=== PATIENT | female | born 1965 | race Caucasian/White ===

== ENCOUNTER 2019-07-01 10:08 | Outpatient (CLI) | payer OTHER, SELFPAY ==
--- NOTE | ~2019-07-01 | MMUS_ITS ---
EXAMINATION: MM diagnostic mammo BI, US breast BI limited HISTORY: Bilateral breast asymmetries on screening mammogram TECHNIQUE: Additional 3-D tomosynthesis images of the breasts were performed and synthetic 2-D images were generated. CAD analysis was submitted and interpreted. High resolution limited bilateral breast ultrasound was performed. COMPARISON: 06/18/2019 FINDINGS: MAMMOGRAPHIC FINDINGS: Right breast: There is subtle persistent asymmetry of the subareolar aspect of the slightly inner nagi ast with spot compression. No definite mass, calcification, or architectural distortion are seen. Left breast: There are equal density, obscured masses in the middle third of the upper outer quadrant of the breast which measure up to 4 mm. ULTRASOUND: Right breast: There is a questionable 8 mm x 4 mm hyperechoic, oval, parallel mass at the 1:00 locati on near the nipple with no posterior features or internal vascularity. Left breast: There is a 3 mm x 3 mm oval, circumscribed, parallel, hypoechoic mass with an appearance hyperechoic center at the 3:00 location 6 cm from the nipple. A 3 mm round, hypoechoic, circumscribe d mass with no definite posterior features or internal vascularity is present at the 12:00 location 6 cm from the nipple. IMPRESSION: 1. Probably benign bilateral breast masses. 2. Recommend 6 month follow-up bilateral diagnostic mammogram and targeted ultrasound. BI-RADS category 3, probably benign findings. Reviewed, dictated and finalized at location A. E COVERER IMPRESSION: 1. Probably benign bilateral breast masses. 2. Recommend 6 month follow-up bilateral diagnostic mammogram and targeted ultr asound. BI-RADS category 3, probably benign findings.
== END 2019-07-01 10:09 | disposition home or self-care (01) ==
LOC: CHSIMG 10:10
PROVIDERS: PCP Nurse Practitioner Family; Visit Provider Nurse Practitioner Family
DX: R92.8 Other abnormal and inconclusive findings on diagnostic imaging of breast (principal)
CPT/HCPCS: 76642; 77066

== ENCOUNTER 2019-07-17 15:08 | Outpatient (CLI) | payer OTHER, SELFPAY ==
--- NOTE | ~2019-07-17 | MR_ITS ---
EXAMINATION: MR knee RT wo con DATE: 07/17/2019 16:16 INDICATION: Right knee pain TECHNIQUE: Magnetic resonance imaging (MRI) of the right knee was performed without intravenous contr ast. Sequences included coronal PD-weighted FSE, coronal PD-weighted FS FSE, sagittal T2-weighted FS E, sagittal PD-weighted FS FSE and axial PD weighted fat saturated FSE. COMPARISON: None. FINDINGS: Medial compartment: Medial meniscus is normal. There is deep chondral ulceration and fissuring along the anterior weightb earing medial femoral condyle with tiny focus of underlying subarticular edema. Additional small mandy on of deep chondral ulceration with small central subarticular osteophyte along the medial side of th e central weightbearing medial femoral condyle. Partial thickness cartilage loss with smooth chondral surface along the anterior aspect of the medial tibial plateau. Small marginal osteophytes are prese nt. Lateral compartment: There is an abnormal contour to the free edge of the lateral meniscus on the axial images series 3, i mage 23. There appears to be a small defect at the junction of the posterior horn and body. There is additional meniscal tissue beyond the margin of what appears to be the free edge at the junction of t he anterior horn and body which could represent either a partial discoid meniscus or displaced menisc al tissue from the parent defect at the junction of the posterior horn and body. There is somewhat am orphous increased signal in the region of the posterior root of the lateral meniscus suspicious for r adial tear located inferior to the intact portion of the posterior horn contiguous with the meniscal femoral ligament of Rubi. Partial-thickness cartilage loss with minimal chondral surface regulari ty at the central aspect of the lateral tibial plateau. Patellofemoral compartment: Deep chondral ulceration at the patellar apical ridge and immediately adjacent portions of the latera l and medial facets. There is underlying subarticular cystic change most prominent at the cephalad as pect of the apical ridge. Small central subarticular osteophyte extending across the midportion of th e lateral patellar facet. Partial-thickness cartilage loss with mild chondral surface irregularity al papi the inferior aspect of the medial trochlea with minimal underlying irregularity at the articular cortex. Ligaments and tendons: The anterior cruciate ligament appears thickened with increased intrasubstance signal surrounding int act signal intensity linear fibers with a celery stalk appearance which can be seen with mucoid deg eneration. The ligament however appears to follow a shallower course Mucoid degeneratio line which ra ises concern for tear although no discrete tear defect or discontinuous ligament fibers are appreciat ed. The bone at the anterior roof of the intercondylar notch exerts mass effect upon the anterior mar gin of the anterior cruciate ligament which is bowed posteriorly at this location. Posterior cruciate ligament is normal.. Is mild thickening of the proximal medial collateral ligament without significa nt increased signal or surrounding edema consistent with likely mild scarring related to chronic spra in. The fibular collateral ligament is normal. There is mild tendinopathy. Discrete tear at the proxi mal insertion of the popliteus tendon. The extensor mechanism is normal. The visualized medial and la teral hamstring tendons as well as the iliotibial band are normal. Fluid: Moderate knee joint effusion with mild synovitis within the suprapatellar recess. No loose osteochond ral bodies identified. Osseous/other: There is geographic red marrow reexpansion in the metadiaphyseal region of the distal femur and to a lesser degree the proximal tibia. No fracture or pathologic marrow replacing process. IMPRESSION: 1. Complex lateral meniscal tear with defect along
== END 2019-07-17 15:09 | disposition home or self-care (01) ==
LOC: CHSIMG 15:11
PROVIDERS: PCP Nurse Practitioner Family; Visit Provider Nurse Practitioner Family
DX: M25.561 Pain in right knee (principal)
CPT/HCPCS: 73721

== ENCOUNTER 2019-10-07 05:47 | Outpatient (CLI) | payer OTHER, SELFPAY ==
[2019-10-07 15:31] LABS: SARS-CoV-2 RNA PCR Negative
--- NOTE | 2019-10-09 16:01 | OP_ITS ---
DATE OF PROCEDURE: 10/09/2019 PREOPERATIVE DIAGNOSES: Right knee medial meniscus tear and lateral meniscus tear. POSTOPERATIVE DIAGNOSES: Right knee medial meniscus tear and lateral meniscus tear plus patellar chondromalacia and synovitis. PROCEDURES PERFORMED: Right knee arthroscopy with partial medial meniscectomy, partial lateral meniscectomy and synovectomy and chondroplasty. SURGEON: Srinivas Feliciano M.D. ANESTHESIA: General. COMPLICATIONS: None. INDICATIONS: This is a 54-year-old female who has ongoing knee pain. Knee pain is severe at times. She was diagnosed with a medial meniscus tear and lateral meniscus tear and also chondromalacia of the patella. She was indicated for right knee arthroscopy. DESCRIPTION OF PROCEDURE: The patient was taken to the operating room in stable condition and placed in supine position. General anesthesia was induced and the right lower extremity was prepped and draped sterilely from the toes to the thigh. Superomedial portal was used for the outflow cannula. Inferior lateral portal was used for the camera. The camera was introduced. There was grade 3 chondromalacia of the patella and minimal chondromalacia to the femoral groove. There was significant amount of synovitis with a large plica in the medial compartment and that was rubbing up against the cartilage with flexion. The medial compartment was entered. There was the chondral defect in the main weightbearing surface of the medial femoral condyle. There was a small tear of the medial meniscus. A medial portal was established. The meniscus underwent partial medial meniscectomy and then the chondral defect was debrided with a shaver down to good smooth cartilage. Next, the ACL was identified and was intact. The lateral compartment was entered. There was a large complex tear to the lateral meniscus involving mainly the posterior horn. The lateral meniscus tear then was debrided down to a smooth base. There was also significant amount of synovitis in the region, which was debrided. Then, limited chondroplasty was performed on the lateral femoral condyle. Next, the patellofemoral joint was identified again. Chondroplasty was performed. Synovectomy was performed in the superior medial compartment and the plica was removed and also in Hoffa synovium. The patella tracked well within the femoral groove. The instruments were removed after thorough irrigation of the knee joint. The wounds were approximated with 4-0 nylon suture. Sterile dressing was applied. The patient was extubated. D I MT: [place]
== END 2019-10-07 05:48 | disposition home or self-care (01) ==
LOC: ANHCOVIDDT 05:50
PROVIDERS: PCP Nurse Practitioner Family; Visit Provider Orthopaedic Surgery
DX: Z01.818 Encounter for other preprocedural examination (principal); Z11.59 Encounter for screening for other viral diseases
CPT/HCPCS: 87635; U0003

== ENCOUNTER 2019-10-09 01:26 | Day surgery (SDC) | payer OTHER, SELFPAY ==
[2019-10-07 10:45] VITALS: BMI 27.9
[2019-10-09] VITALS (10 sets, daily range): BP systolic 101–174; BP diastolic 50–97; PULSE 57–85; RESP 10–20; TEMP 36.4–36.9; O2SAT 96–98
--- NOTE | 2019-10-09 11:24 | ECG_ITS ---
Measurements Intervals [place] Rate: 72 P: 16 GA: 195 QRS: 30 QRSD: 81 T: 56 QT: 419 QTc: 459 Interpretive Statements SINUS RHYTHM NORMAL ECG Electronically Signed On 10-09-2019 11:55:13 CDT by Jarek Gusman D.O.
[2019-10-09] MEDS: CELECOXIB 200 MG CAPSULE PO (11:25)
--- NOTE | 2019-10-09 11:38 | WPDANESEPPF ---
Anes - Initial Pre Proc Eval Procedure: Operation Date: 10/09/19 13:00 Proposed Procedures p Right Knee Arthroscopy - Srinivas Feliciano MD Date/Time: 10/09/19 11:38 Surgeon: Srinivas Feliciano MD Pre Op Diagnosis: Right Medial Meniscus Tear Patient Data Age: 54 Gender: F Height: 5 ft 2.5 in Weight: 70.45 kg Allergies Allergy/AdvReac Type Severity Reaction Status Date / Time No Known Allergies Allergy Verified 10/09/19 11:36 Home Medications Medication Instructions Recorded Confirmed Type cyclobenzaprine 10 mg tablet 10 mg PO TID PRN #90 tablet 06/10/19 10/07/19 Rx citalopram 40 mg tablet 40 mg PO DAILY #30 tablet 07/22/19 10/07/19 Rx nicotine 14 mg/24 hr daily 1 patch TRANSDERM DAILY #28 each 09/16/19 10/07/19 Rx transdermal patch diclofenac sodium 50 mg 50 mg PO TID PRN #60 tablet 09/19/19 10/07/19 Rx tablet,delayed release chlorhexidine gluconate 4 % 1 applic TOPICAL ONCE #237 ml 10/03/19 10/07/19 Rx topical liquid aspirin 325 mg tablet 325 mg PO BID 14 Days #28 tablet 10/07/19 10/07/19 Rx atorvastatin 10 mg DAILY 10/07/19 10/07/19 History gabapentin 300 mg BID 10/07/19 10/07/19 History hydrocodone 5 mg-acetaminophen 325 1 tablet PO Q8H PRN #20 tablet 10/07/19 Rx mg tablet hydroxyzine HCl 50 mg PO TID PRN 10/07/19 10/07/19 History lisinopril 40 mg DAILY 10/07/19 10/07/19 History omeprazole 20 mg DAILY 10/07/19 10/07/19 History Patient hx anesthesia problems: none Family hx anesthesia problems: none PMFSH Past Medical History Medical History 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 Chronic knee pain Depression GERD (gastroesophageal reflux disease) HTN (hypertension) Hyperlipidemia Medial meniscus tear Tobacco dependence syndrome Surgical History Surgical History Hx of tonsillectomy 1984 Family History Family History Father Heart disease Unknown Hypertension Social History Social History Smoking packs per day: 0.5 Smoking cigarettes per day: 10.0 Smoking status: Current every day smoker Substance use type: marijuana Anes - Eval Final PreProcedure Day of Procedure 10/09/19 11:38 Patient weight: overweight Heart: regular rate and rhythm Lungs: decreased breath sounds Airway: Mallampati scale class II Neurological: alert and oriented Last oral intake: >/= 8 hours ASA classification: III Emergent: no Anesthetic plan: proceed Anesthesia type and monitoring: general LMA and standard monitoring Informed Consent: The patient's anesthetic plan and its attendant risks and benefits were discussed with the patient/family/POA. Questions were solicited and answers provided to the satisfaction of the patient/family/POA.
[2019-10-09] MEDS: LACTATED RINGERS 1,000 ML 30 ML IV CONT ×2 (12:04→14:22)
--- NOTE | 2019-10-09 12:18 | WPDHPUPDATE1 ---
History and Physical Update Update Date/Time: 10/09/19 12:18 History and Physical has been reviewed, including an updated exam of the patient. There are NO changes in the patient's condition. Risks, benefits, and alternatives have been discussed and questions answered. Patient agrees to proceed with procedure.
[2019-10-09] MEDS: ceFAZolin 2 GM/D5W 50 ML 2 GM/50 ML BAG IVPB (12:43)
--- NOTE | 2019-10-09 14:28 | PM.OP ---
Procedure Note - Brief Procedure Note - Brief Date of procedure: 10/09/19 Pre-op diagnosis: Right Medial Meniscus Tear right medial and lateral meniscus tear Post-op diagnosis: same Procedure performed: right knee scope Anesthesia: GETA Surgeon: Srinivas Feliciano MD Estimated blood loss (mL): 5 Complications: No immediate complications Condition: stable Disposition: PACU
--- NOTE | 2019-10-09 14:35 | OP_ITS ---
This report was moved to the correct visit, [id number] on 10/11/19. Original report was signed by Dr. Srinivas Feliciano on 10/10/19 at 1342. DATE OF PROCEDURE: 10/09/2019 PREOPERATIVE DIAGNOSES: Right knee medial meniscus tear and lateral meniscus tear. POSTOPERATIVE DIAGNOSES: Right knee medial meniscus tear and lateral meniscus tear plus patellar chondromalacia and synovitis. PROCEDURES PERFORMED: Right knee arthroscopy with partial medial meniscectomy, partial lateral meniscectomy and synovectomy and chondroplasty. SURGEON: Srinivas Feliciano M.D. ANESTHESIA: General. COMPLICATIONS: None. INDICATIONS: This is a 54-year-old female who has ongoing knee pain. Knee pain is severe at times. She was diagnosed with a medial meniscus tear and lateral meniscus tear and also chondromalacia of the patella. She was indicated for right knee arthroscopy. DESCRIPTION OF PROCEDURE: The patient was taken to the operating room in stable condition and placed in supine position. General anesthesia was induced and the right lower extremity was prepped and draped sterilely from the toes to the thigh. Superomedial portal was used for the outflow cannula. Inferior lateral portal was used for the camera. The camera was introduced. There was grade 3 chondromalacia of the patella and minimal chondromalacia to the femoral groove. There was significant amount of synovitis with a large plica in the medial compartment and that was rubbing up against the cartilage with flexion. The medial compartment was entered. There was the chondral defect in the main weightbearing surface of the medial femoral condyle. There was a small tear of the medial meniscus. A medial portal was established. The meniscus underwent partial medial meniscectomy and then the chondral defect was debrided with a shaver down to good smooth cartilage. Next, the ACL was identified and was intact. The lateral compartment was entered. There was a large complex tear to the lateral meniscus involving mainly the posterior horn. The lateral meniscus tear then was debrided down to a smooth base. There was also significant amount of synovitis in the region, which was debrided. Then, limited chondroplasty was performed on the lateral femoral condyle. Next, the patellofemoral joint was identified again. Chondroplasty was performed. Synovectomy was performed in the superior medial compartment and the plica was removed and also in Hoffa synovium. The patella tracked well within the femoral groove. The instruments were removed after thorough irrigation of the knee joint. The wounds were approximated with 4-0 nylon suture. Sterile dressing was applied. The patient was extubated. D I MT: [facility] Dictated By: Srinivas Feliciano MD 10/09/19 1435 Transcribed Date/Time: 10/09/19 8818 Signed By: Srinivas Feliciano MD 10/10/[address] [facility] [place]
--- NOTE | 2019-10-09 15:18 | SUR.PHASEI ---
1518 updated Oliva(DIL) and told her to bring some clothing
--- NOTE | 2019-10-09 17:19 | SUR.PHASEII ---
1710 PT MEETS ANESTHESIA DISCHARGE CRITERIA. PT DRESSED- WAITING FOR [facility] TO GET HERE.
== END 2019-10-09 17:43 | disposition home or self-care (01) ==
PROVIDERS: PCP Nurse Practitioner Family; Visit Provider Orthopaedic Surgery
PROC: (CPT 29870; principal; 2019-10-09 13:00)
DX: M23.331 Other meniscus derangements, other medial meniscus, right knee (principal); M23.351 Other meniscus derangements, posterior horn of lateral meniscus, right knee; M65.861 Other synovitis and tenosynovitis, right lower leg; I10 Essential (primary) hypertension; M94.261 Chondromalacia, right knee; M89.40 Other hypertrophic osteoarthropathy, unspecified site; K21.9 Gastro-esophageal reflux disease without esophagitis; E78.5 Hyperlipidemia, unspecified; F17.210 Nicotine dependence, cigarettes, uncomplicated; F12.90 Cannabis use, unspecified, uncomplicated; Z79.82 Long term (current) use of aspirin
CPT/HCPCS: 29880; 93005; A9270; J0690; J1100; J2250; J2405; J2704; J3010; J7120

== ENCOUNTER 2019-11-18 14:25 | Outpatient (CLI) | payer OTHER, SELFPAY ==
--- NOTE | ~2019-11-18 | XR_ITS ---
XR wrist RT 2V DATE: 11/18/2019 14:45 INDICATION: Right wrist pain. No known injury. TECHNIQUE: AP and lateral views COMPARISON: None FINDINGS: Mild osteoarthritis at the first carpometacarpal joint. No fracture or dislocation, periosteal reaction or bone destruction. IMPRESSION: Mild osteoarthritis Reviewed, dictated and finalized at location A. IMPRESSION: Mild osteoarthritis
== END 2019-11-18 14:26 | disposition home or self-care (01) ==
LOC: CHSLAB 14:26
PROVIDERS: PCP Nurse Practitioner Family; Visit Provider Nurse Practitioner Family
DX: M25.531 Pain in right wrist (principal)
CPT/HCPCS: 73100

== ENCOUNTER 2019-12-22 09:59 | Outpatient (CLI) | payer OTHER, SELFPAY ==
--- NOTE | ~2019-12-22 | MR_ITS ---
EXAMINATION: MR knee RT wo con DATE: 12/22/2019 11:14 INDICATION: Right knee pain. TECHNIQUE: Magnetic resonance imaging (MRI) of the right knee was performed without intravenous contr ast. Sequences included axial PD-weighted FS FSE, coronal PD-weighted FSE and PD-weighted FS FSE, sag ittal PD-weighted FSE, and sagittal T2-weighted FS FSE. COMPARISON: Right knee radiographs 12/05/2019, MRI 07/17/2019 FINDINGS: Medial compartment: Medial meniscus is intact. There is deep partial thickness cartilage loss of femoral condyle involvin g the central and posterior articular surface. There is extensive shallow partial-thickness cartilage loss of femoral condyle and tibial condyle. Marginal osteophytes are noted. Lateral compartment: There is a complex tear involving body and posterior horn of lateral meniscus. There is a subchondral fracture of femoral condyle laterally with subchondral low-signal fracture line and extensive bone m arrow edema. There is extensive deep partial thickness cartilage loss of femoral condyle and tibial c ondyle. There is full-thickness cartilage loss of tibial condyle involving the central articular surf mamie with mild subchondral edema-like marrow signal intensity. Patellofemoral compartment: There is full-thickness cartilage loss involving patellar medial facet, median ridge, and lateral fac et with subchondral cysts and subchondral edema-like marrow signal intensity. There is partial-thickn ess cartilage loss of trochlea including deep partial-thickness cartilage loss of medial trochlea. Os teophytes are noted. Ligaments and tendons: The anterior and posterior cruciate ligaments are intact. There is edema-like marrow signal intensity of the intercondylar eminence. Medial collateral ligament is intact. There are changes of prior spra in of fibular collateral ligament characterized by thickening and increased signal intensity. There i s mild patellar tendinopathy. Fluid: There is a small knee joint effusion. There is trace fluid in a Rolon's cyst. There is mild prepatell ar and superficial infrapatellar bursitis. IMPRESSION: 1. Subchondral insufficiency fracture of lateral femoral condyle. 2. Severe chondrosis of lateral and patellofemoral compartments and moderate chondrosis of medial com partment. 3. Tears of medial and lateral menisci. 4. Small knee joint effusion. Reviewed, dictated and finalized at location A. IMPRESSION: 1. Subchondral insufficiency fracture of lateral femoral condyle. 2. Severe chondrosis of lateral and patellofemoral compartments and moderate ch ondrosis of medial compartment. 3. Tears of medial and lateral menisci. 4. Small knee joint effusion.
== END 2019-12-22 10:00 | disposition home or self-care (01) ==
LOC: ANHIMG 10:08
PROVIDERS: PCP Nurse Practitioner Family; Visit Provider Nurse Practitioner Family
DX: M25.461 Effusion, right knee (principal); S83.281A Other tear of lateral meniscus, current injury, right knee, initial encounter; S83.241A Other tear of medial meniscus, current injury, right knee, initial encounter; X58.XXXA Exposure to other specified factors, initial encounter
CPT/HCPCS: 73721

== ENCOUNTER 2020-02-10 00:27 | Outpatient (CLI) | payer OTHER, SELFPAY ==
[2020-02-10 16:39] LABS: SARS-CoV-2 RNA PCR Negative
== END 2020-02-10 00:28 | disposition home or self-care (01) ==
LOC: ANHCOVIDDT 00:27
PROVIDERS: PCP Nurse Practitioner Family; Visit Provider Orthopaedic Surgery
DX: Z01.812 Encounter for preprocedural laboratory examination (principal); Z20.828 Contact with and (suspected) exposure to other viral communicable diseases
CPT/HCPCS: 87635; C9803; U0003

== ENCOUNTER 2020-02-12 01:35 | Day surgery (SDC) | payer OTHER, SELFPAY ==
[2020-01-30 12:30] VITALS: BMI 26.9
--- NOTE | 2020-02-05 10:25 | PM.IMHP ---
H&P: HPI History of Present Illness Chief complaint: recurrent rt knee lateral and medial meniscus tear Narrative: Knee Pain Pt presents with Right knee pain. She had an arthroscopy 10/09/19. Pt states she had a twisting injury a couple weeks ago and has had increased pain. Involved knee: right Onset: gradual Location of pain: medial, lateral, anterior and proximal Character: dull ache and shooting Timing of pain: intermittent Exacerbated by: weight bearing, squatting, stairs and rotational activities Relieved by: rest and other ([place]) Associated symptoms: Reports stiffness History of occupational/recreational activity with repetitive motion: No History of prior knee injury: Yes (prev. arthroscopy) Date: 10/09/19 Prior treatment: PT, surgery, brace, NSAIDs and rest Review of Systems Review of Systems: All systems reviewed & are unremarkable except as noted in HPI and below Constitutional: Constitutional: Denies headache(s) and Denies weakness Eyes: Eyes: Denies blurry vision, Denies change in vision and Denies loss of vision ENT: Denies dizziness, Denies dry mouth, Denies headache(s) and Denies nasal congestion Cardiovascular: Cardiovascular: Denies chest pain, Denies syncope, Denies leg edema and Denies dyspnea on exertion Respiratory: Respiratory: Denies cough and Denies dyspnea on exertion Gastrointestinal: Gastrointestinal: Denies abdominal pain, Denies constipation and Denies diarrhea Genitourinary: Genitourinary: Denies urinary frequency Musculoskeletal: Musculoskeletal: Reports as per HPI and Denies numbness Integumentary/Breasts: Skin/Breast: Reports system reviewed and no additional complaints, except as docu Neurologic: Denies dizziness, Denies syncope, Denies headache(s), Denies loss of vision, Denies numbness and Denies weakness Psychiatric: Psychiatric: Reports no additional psychiatric complaints Endocrine: Endocrine: Reports no additional endocrine complaints Hematologic/Lymphatic: Hematologic/Lymphatic: Reports no additional hematologic/lymphatic complaints [facility] Past Medical History Medical History 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 Chronic knee pain Depression Effusion, right knee GERD (gastroesophageal reflux disease) HTN (hypertension) Hyperlipidemia Medial meniscus tear Nicotine dependence in remission Using patches Tobacco dependence syndrome Surgical History Surgical History Hx of tonsillectomy 1984 Family History Family History Father Heart disease Unknown Hypertension Social History Social History Smoking packs per day: 3 Smoking cigarettes per day: 60.0 Years smoked: 42 Smoking pack-years: 126.00 Smoking status: Former smoker Tobacco type: cigarettes Substance use type: marijuana Last use: 06/2019 Spiritual care concerns: No Meds Home Medications and Allergies Home Medications Medication Instructions Recorded Confirmed Type atorvastatin 10 mg tablet 10 mg PO DAILY #30 tablet 11/28/19 01/30/20 Rx citalopram 40 mg tablet See Rx Instructions .ROUTE 11/28/19 01/30/20 Rx .COMPLEX #30 tablet gabapentin 300 mg capsule See Rx Instructions .ROUTE 12/24/19 01/30/20 Rx .COMPLEX #90 cap lisinopril 40 mg tablet See Rx Instructions .ROUTE 12/24/19 01/30/20 Rx .COMPLEX #60 tablet cyclobenzaprine 10 mg tablet 10 mg PO TID PRN #60 tablet 12/25/19 01/30/20 Rx ropinirole 0.25 mg tablet 0.25 mg PO .nightly #30 tablet 12/25/19 01/30/20 Rx nicotine 21 mg/24 hr daily 1 patch TRANSDERM DAILY #28 each 01/13/20 01/30/20 Rx transdermal patch hydrocodone 5 mg-acetaminophen 325 1 tablet PO Q8H PRN #20 tablet 01/24/20 01/30/20 Rx mg tablet hydroxyzine HCl 25 mg tablet See Rx Instructions .ROUTE 01/27/20 01/30/20
[2020-02-12] VITALS (8 sets, daily range): BP systolic 141–184; BP diastolic 69–88; PULSE 67–76; RESP 14–20; TEMP 36.2–36.6; O2SAT 96–100
--- NOTE | 2020-02-12 07:15 | WPDHPUPDATE1 ---
History and Physical Update Update Date/Time: 02/12/20 07:15 History and Physical has been reviewed, including an updated exam of the patient. There are NO changes in the patient's condition. Risks, benefits, and alternatives have been discussed and questions answered. Patient agrees to proceed with procedure.
--- NOTE | 2020-02-12 10:05 | WPDANESEPPF ---
Anes - Initial Pre Proc Eval Procedure: Operation Date: 02/12/20 14:00 Proposed Procedures p Right Knee Arthroscopy, Proceed As Indicated - Srinivas Feliciano MD Date/Time: 02/12/20 10:05 Surgeon: Srinivas Feliciano MD Pre Op Diagnosis: recurrent rt knee lateral and medial meniscus tear Patient Data Age: 54 Gender: F Height: 1.59 m Weight: 68 kg Allergies Allergy/AdvReac Type Severity Reaction Status Date / Time No Known Allergies Allergy Verified 01/30/20 12:35 Home Medications Medication Instructions Recorded Confirmed Type atorvastatin 10 mg tablet 10 mg PO DAILY #30 tablet 11/28/19 01/30/20 Rx citalopram 40 mg tablet See Rx Instructions .ROUTE 11/28/19 01/30/20 Rx .COMPLEX #30 tablet gabapentin 300 mg capsule See Rx Instructions .ROUTE 12/24/19 01/30/20 Rx .COMPLEX #90 cap lisinopril 40 mg tablet See Rx Instructions .ROUTE 12/24/19 01/30/20 Rx .COMPLEX #60 tablet cyclobenzaprine 10 mg tablet 10 mg PO TID PRN #60 tablet 12/25/19 01/30/20 Rx ropinirole 0.25 mg tablet 0.25 mg PO .nightly #30 tablet 12/25/19 01/30/20 Rx nicotine 21 mg/24 hr daily 1 patch TRANSDERM DAILY #28 each 01/13/20 01/30/20 Rx transdermal patch hydrocodone 5 mg-acetaminophen 325 1 tablet PO Q8H PRN #20 tablet 01/24/20 01/30/20 Rx mg tablet hydroxyzine HCl 25 mg tablet See Rx Instructions .ROUTE 01/27/20 01/30/20 Rx .COMPLEX #45 tablet omeprazole 20 mg capsule,delayed 20 mg PO DAILY #90 cap 01/27/20 01/30/20 Rx release Patient hx anesthesia problems: none Family hx anesthesia problems: none PMFSH Past Medical History Medical History 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 Chronic knee pain Depression Effusion, right knee GERD (gastroesophageal reflux disease) HTN (hypertension) Hyperlipidemia Medial meniscus tear Nicotine dependence in remission Using patches Tobacco dependence syndrome Surgical History Surgical History Hx of tonsillectomy 1984 Family History Family History Father Heart disease Unknown Hypertension Social History Social History Smoking packs per day: 3 Smoking cigarettes per day: 60.0 Years smoked: 42 Smoking pack-years: 126.00 Smoking status: Former smoker Tobacco type: cigarettes Substance use type: marijuana Last use: 06/2019 Spiritual care concerns: No Anes - Eval Final PreProcedure Day of Procedure 02/12/20 10:05 Patient weight: overweight Heart: regular rate and rhythm Lungs: clear to auscultation and normal air movement Airway: Mallampati scale class II Neurological: alert and oriented Last oral intake: >/= 8 hours ASA classification: III Emergent: no Anesthetic plan: proceed Anesthesia type and monitoring: general LMA and standard monitoring Informed Consent: The patient's anesthetic plan and its attendant risks and benefits were discussed with the patient/family/POA. Questions were solicited and answers provided to the satisfaction of the patient/family/POA.
[2020-02-12] MEDS: ACETAMINOPHEN 500 MG TABLET 1000 MG PO (12:30)
[2020-02-12] MEDS: CELECOXIB 200 MG CAPSULE PO (12:31)
[2020-02-12] MEDS: LACTATED RINGERS 1,000 ML 30 ML IV CONT (12:32)
--- NOTE | 2020-02-12 12:49 | SUR.PREOP ---
1200-STATES AWOKE 5 DAYS AGO WITH LEFT EYE REDDENED, REMAINS REDDENED TODAY, DENIES ANY PAIN OR DRAINAGE. DR. MACARIO AWARE AND EXAMINED PT, WILL PROCEED. 1250-DR. DAMIAN AWARE OF ABOVE, WILL PROCEED.
[2020-02-12] MEDS: ceFAZolin 2 GM/D5W 50 ML 2 GM/50 ML BAG IVPB (13:04)
--- NOTE | 2020-02-12 14:07 | PM.PROC ---
Procedure Note - Detailed Date of procedure: 02/12/20 Pre-op diagnosis: recurrent rt knee lateral and medial meniscus tear Post-op diagnosis: same Procedure performed: RIGHT KNEE SCOPE WITH PARTIAL LATERAL MENISCECTOMY AND MINOR SYNOVECTOMY Description of procedure: PATIENT WAS TAKEN TO THE OR. RIGHT LEG WAS PREPPED AND DRAPED STERILE. TROCARS WERE PLACED IN THE USUAL FASHION. CAMERA WAS INTRODUCED. THERE WAS CHONDROMALACIA TO THE PATELLA FEMORAL JOINT. THERE WAS SOME MILD SYNOVITIS. THE MEDIAL COMPARTMENT SHOWED CHONDROMALACIA TO THE MED FEMORAL CONDYLE. A SHAVER WAS USED TO PREFORM A CHONDROPLASTY. THERE WAS NO MEDIAL MENISCUS TEAR. THE ACL WAS INTACT. THE LATERAL MENISCUS WAS TORN AND UNDERWENT RESECTION TO A SMOOTH BASE. THE LAT FEMORAL CONDYLE UNDERWENT CHONDROPLASTY. A SYNOVECTOMY WAS PREFORMED IN THE LATERAL COMPARTMENT WHERE SYNOVIA WAS IMPINGING ON THE JOINT LINE. THE PATELLO FEMORAL JOINT UNDERWENT CHONDROPLASTY. THE WOUNDS WERE APPROXIMATED WITH 4.0 NYLON. STERILE DRESSING WAS APPLIED. PATIENT WAS EXTUBATED. Anesthesia: GLMA Surgeon: Srinivas Feliciano MD Estimated blood loss (mL): 5 Complications: No immediate complications Condition: stable Disposition: PACU
[2020-02-12] MEDS: fentaNYL CITRATE INJ (*CRX) 100 MCG/2 ML VIAL 25 MCG IV PUSH ×3 (14:19→14:25)
[2020-02-12] MEDS: oxyCODONE HCL (*CRX) 5 MG TAB IR PO (15:15)
== END 2020-02-12 16:35 | disposition home or self-care (01) ==
PROVIDERS: PCP Nurse Practitioner Family; Visit Provider Orthopaedic Surgery
PROC: (CPT 29870; principal; 2020-02-12 14:00)
DX: S83.281A Other tear of lateral meniscus, current injury, right knee, initial encounter (principal); M22.41 Chondromalacia patellae, right knee; M65.88 Other synovitis and tenosynovitis, other site; X50.0XXA Overexertion from strenuous movement or load, initial encounter; I10 Essential (primary) hypertension; E78.5 Hyperlipidemia, unspecified; K21.9 Gastro-esophageal reflux disease without esophagitis; F32.9 Major depressive disorder, single episode, unspecified; Z87.891 Personal history of nicotine dependence
CPT/HCPCS: 29881; A9270; J0690; J1100; J2250; J2405; J2704; J3010; J7120

== ENCOUNTER 2020-03-30 09:10 | Outpatient (CLI) | payer OTHER, SELFPAY ==
--- NOTE | ~2020-03-30 | MMUS_ITS ---
EXAMINATION: MM diagnostic leandro BI w aline, US breast BI limited HISTORY: Follow-up bilateral breast masses TECHNIQUE: Additional 3-D tomosynthesis images of the breasts were performed and synthetic 2-D images were generated. CAD analysis was submitted and interpreted. High resolution bilateral breast ultraso und was performed. COMPARISON: Comparison to multiple prior studies sequentially, with oldest reviewed study dated 06/18. BREAST PARENCHYMAL COMPOSITION: BREAST PARENCHYMAL COMPOSITION: There are scattered areas of fibroglandular density. FINDINGS: MAMMOGRAPHIC FINDINGS: The breasts are stable. Bilateral breast asymmetries are unchanged. There is a calcified right breast implant. No new masses, calcifications or architectural distortion are identified. ULTRASOUND: Right breast ultrasound: Normal heterogeneous echotexture without discrete mass. Left breast ultrasound: At 3:00, 6 cm from the nipple, there is a benign 4 mm intramammary lymph node. At 2:00, 6 cm from the nipple, there is an irregular shaped hypoechoic mass with posterior shadowing which measures approxi mately 6 mm maximum dimension. At 12:00, 6 cm from the nipple, there is a oval hypoechoic 2-3 mm nodu le without significant posterior features or internal vascularity, likely benign. IMPRESSION: 1. Irregular shaped hypoechoic mass of the left breast at 2:00, 6 cm from the nipple. 2. Ultrasound-guided left breast biopsy recommended. BI-RADS category 4, suspicious findings. Reviewed, dictated and finalized at location A. OTYPE MACHINE OPERATOR IMPRESSION: 1. Irregular shaped hypoechoic mass of the left breast at 2:00, 6 cm from the n ipple. 2. Ultrasound-guided left breast biopsy recommended. BI-RADS category 4, suspicious findings.
== END 2020-03-30 09:11 | disposition home or self-care (01) ==
PROVIDERS: PCP Nurse Practitioner Family; Visit Provider Nurse Practitioner Family
DX: R92.8 Other abnormal and inconclusive findings on diagnostic imaging of breast (principal)
CPT/HCPCS: 76642; 77062; 77066; G0279

== ENCOUNTER 2020-04-08 12:46 | Outpatient (CLI) | payer OTHER, SELFPAY ==
--- NOTE | ~2020-04-08 | MMUS_ITS ---
EXAMINATION: US breast biopsy LT w image, MM post biopsy diagnostic LT DATE: 04/08/2020 13:58 (accession [id number]), 04/08/2020 14:01 (accession [id number]) INDICATION: Left breast mass. Ultrasound-guided core biopsy is requested to evaluate for malignancy. TECHNIQUE AND FINDINGS: The risks and potential benefits of the procedure were discussed with the patient including bleeding and infection. A time out was performed. The skin of the left breast was prepared and draped in usual sterile fashion. 1% lidocaine was used for superficial anesthesia. 1% lidocaine with epinephrine was used for deep anesthesia. A vacuum-assisted biopsy gun needle was advanced through to the outer edge of the region of interest from a lateral approach utilizing sonographic guidance. A total of three tissue core samples were obt ained through the lesion. A tissue marker clip was then placed at the biopsy site. Hemostasis was ach ieved. A sterile bandage was applied. The patient tolerated procedure well and there was no evidence of immediate complication. The patient was given verbal instructions to return to the Emergency Department in the event of severe breast pa in or rapid breast enlargement. A two view left breast mammogram was obtained to document tissue gail er clip placement. IMPRESSION: 1. Successful ultrasound-guided vacuum-assisted biopsy of left breast mass with tissue marker placeme nt. Reviewed, dictated and finalized at location A. ELING PHLEBOTOMIST IMPRESSION: 1. Successful ultrasound-guided vacuum-assisted biopsy of left breast mass with tissue marker placement.
== END 2020-04-08 12:47 | disposition home or self-care (01) ==
LOC: CHSIMG 12:47
PROVIDERS: PCP Nurse Practitioner Family; Visit Provider Nurse Practitioner Family
DX: N63.21 Unspecified lump in the left breast, upper outer quadrant (principal); N60.32 Fibrosclerosis of left breast
CPT/HCPCS: 19083; 77065; 88305; A4648

== ENCOUNTER 2020-05-11 13:22 | Outpatient (CLI) | payer OTHER, SELFPAY ==
--- NOTE | ~2020-05-11 | XR_ITS ---
XR lumbar spine 2-3V 05/11/2020 13:35 Indication: Low back pain Procedure: 3 views lumbar spine Comparison: No prior studies for comparison. Findings: There is disc narrowing at all lumbar levels. Vertebral body heights are maintained. No acu te fracture or traumatic malalignment. No evidence for spondylolisthesis.. Pedicles intact. There are cholecystectomy clips. Sacral foramen are symmetric. Impression: 1: Moderate lumbar spondylosis. Reviewed, dictated and finalized at location A. IC AND ACCESSORIES ESTIMATOR Impression: 1: Moderate lumbar spondylosis.
== END 2020-05-11 13:23 | disposition home or self-care (01) ==
LOC: CHSIMG 13:25
PROVIDERS: PCP Nurse Practitioner Family; Visit Provider Nurse Practitioner Family
DX: M54.5 Low back pain (principal)
CPT/HCPCS: 72100

== ENCOUNTER 2020-06-02 11:00 | Outpatient (RCR) | payer OTHER, SELFPAY ==
--- NOTE | 2020-03-11 15:54 | PTOPEVAL ---
PHYSICAL THERAPY EVALUATION AND PLAN OF CARE 03-11-2020 Thank you for referring Elena Ng to [facility].? She is scheduled to be seen for therapy? 2 x/week for 3 weeks. Please review, sign, date and return this plan of care MARITZA. I agree with and certify that the following plan of care is medically necessary. Referring Physician Date Attending Provider: Srinivas Feliciano MD *PT Outpatient Evaluation Document 03/11/20 14:50 ABHAY (Rec: 03/11/20 15:54 ABHAY [id number]) Past Medical History Source of Past Medical History Patient,Recalled from Previous Visit, Confirmed with Patient /Family Neurological History Hx Neurological Disorders No Significant History Cardiovascular History Hx Hypercholesterolemia Yes Hx Hypertension Yes: meds control Respiratory History Hx Other Respiratory Disorders Yes: smoker- trying to stop Gastrointestinal History Hx Cholecystectomy Yes: 2004 Hx Gastroesophageal Reflux Disease Yes Genitourinary History Hx Kidney Stones Yes: STONE EXTRACTION 2014 Musculoskeletal History Hx Arthritis Yes: knees,hands,elbows, shoulder,back Hx Orthopedic Surgery Yes: R knee arthroscopy September 2019 and Feb 11 Hx Other Musculoskeletal Disorders Yes: R foot pain- going to have dr check it Hematological History Hx Hematological Disorders No Significant History Endocrine History Hx Endocrine Disorders No Significant History HEENT History Hx Tonsillectomy Yes Hx Dental Problems Yes: FULL UPPER & LOWER DENTURES Hx Other HEENT Disorders Yes: GLASSES Integumentary History Hx Skin Disorders No Significant History Reproductive History Hx Post Menopausal Yes Hx Other Reproductive Disorders Yes: CYST REMOVED FROM RT BREAST AGE 1 WITH RECONSTRUCTION & IMPLANT AGE 14 Psychosocial History Hx Anxiety Yes Hx Depression Yes Pain History Has Past Pain Affected Your Daily Life Yes: WITH RIGHT KNEE Anesthesia History Hx Anesthesia Reactions No Significant History Other History Hx Cancer Yes: ? RT BREAST Evaluation Information Problem Diagnosis s/p R knee arthroscoopy Onset 02-12-2020 Subjective Information am not doing any exercises at Query Text:As Reported By Patient/ home for knee; Family Previous Treatments Previous Treatments For This Problem no PT since knee surgery Prior Level of Function Activity Level (Last 3 Months) Occupation
--- NOTE | 2020-03-31 09:36 | PCPTNOTE ---
Patient called & cancelled scheduled appointment this date due to not having transportation.
--- NOTE | 2020-04-03 11:12 | PCPTNOTE ---
pt called and canceled due to transportation issues; rescheduled;
--- NOTE | 2020-04-10 08:54 | PCPTNOTE ---
pt did not show for today's reevaluation; called and talked with pt; she stated she is having problems with her transportation. Also stated she had a PT order for her hand, Reinforced to her that she will have to call and make an appointment for the reevaluation on her knee and the eval time for her hand.
--- NOTE | 2020-04-16 13:46 | PTOPEVAL ---
PHYSICAL THERAPY DISCHARGE 04-16-2020 Refer to the clinical summary below for comparison to the initial evaluation. Discharge PT at this time; Elena is to continue with her exercises at home and increase her walking tolerance. Thank you for referring Elena Ng to [facility].? Please review, sign, date and return this discharge MARITZA. I agree with and certify that the following plan of care is medically necessary. Referring Physician Date Attending Provider: Srinivas Feliciano MD *PT Outpatient Discharge Document 04/16/20 13:05 ABHAY (Rec: 04/16/20 13:41 ABHAY [id number]) Subjective Information Elena reports: knee is doing Query Text:As Reported By Patient/ good; pain is less, moving Family knee better; have been doing exercises, about every other day; have been walking outside about 7-8 minutes at time to store; agrees to discharge from PT at this time and to continue with her home exercises and walking more. Pain Assessment Timing of Pain Assessment Timing of Pain Assessment Assessment Pain Scale Pain Scale Used Numeric (1 - 10) Self Report Pain Assessment Right Knee(s) Reported Pain Level 3 Pain Frequency Acute Other Pain Description medial aspect Lowest Pain Intensity 0 Greatest Pain Intensity 6 Other Pain Aggravating Factors quick movements, getting up fast/stand or turn too fast Pain Score Pain Score 3: Self Report Interventions Used Interventions Used By Clinicians Exercise Pain Relief Interventions Used By Ice,Medication Patient Other Alleviating Interventions take tramadol daily Lower Extremity Range of Motion General Lower Extremity Range of Motion Gross Lower Extremity Range of Motion sitting R knee AROM 0-120'; Comments increase pain with flexion- pulling a little in knee Lower Extremity Muscle Strength Testing General Lower Extremity Strength Gross Lower Extremity Strength functional strength: R LE: supine bridge x 23 reps; single leg standing 7 seconds; standing with UE support: 3# ankle wt: R hip abduction x 20 reps; supine with red theraband: SLR, hip abduction x 20 reps; Balance Assessment 5 Time Sit to Stand Time in Seconds 17 5 Time Sit to Stand Comments no use of UE's Query Text:Normative Data: If Greater Than 15 Seconds, 74% Increase Risk for Recurre
--- NOTE | 2020-04-21 10:34 | OTOPEVAL ---
OCCUPATIONAL THERAPY EVALUATION REPORT 04/21/2020 Thank you for referring Elena Ng to [facility].? The patient is scheduled to be seen for occupational therapy? 2x/week for 6 weeks. Please review, sign, date and return this plan of care MARITZA. I agree with and certify that the following plan of care is medically necessary. Referring Physician Date Referring Provider: Thelma Burton NP *OT Outpatient Evaluation Evaluation Information Problem Diagnosis (R) hand pain Subjective Information Patient reports that her hand Query Text:As Reported By Patient/ pain is due to carpal tunnel. Family She missed her nerve conduction study due to needing to take care of her sister. However she states that she felt the onset of carpal tunnel symptoms about 6 years ago and she reports it got bad about 3 years ago. 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 She states that she is independent with ADLs and household tasks, but states she needs help every time to open jars and soda bottles. She states that she also is having difficulty with picking up pills and doing buttons. She notes that everything drops out of my hands . Prior Level of Function Activity Level (Last 3 Months) Occupation Not working right now Hand Dominance Right Activity of Daily Living Ability Independent Indoor/Home Mobility Independent Community Mobility Independent Stairs Ability Independent Functional Cognition (Planning, Shopping Independent , Taking Medications) Cooking Yes Cleaning Yes Laundry Yes Shopping Yes Driving Yes Home Setting Home Type House,Single Level Environmental Barriers Stairs, 2-4 Living Situation With Adult Child Pain Assessment Timing of Pain Assessment Timing of Pain Assessment Assessment Pain Scale Pain Scale Used Numeric (1 - 10) Self Report Pain Assessment Left Hand(s) Reported Pain Level 4 Pain Description Dull Other Pain Description
--- NOTE | 2020-05-21 11:09 | PCOTNOTE ---
Patient called & cancelled scheduled appointment this date due to something came up .
--- NOTE | 2020-06-01 14:29 | PCOTNOTE ---
Patient did not show up for scheduled appointment this date. Called patient and she stated something happened with the call-a-ride service. She is aware that she has an appointment tomorrow at 11 AM.
--- NOTE | 2020-06-02 11:44 | OTOPEVAL ---
OCCUPATIONAL THERAPY DISCHARGE REPORT 06/02/2020 Elena presents today for re-evaluation after 6 treatment sessions over the course of 6 weeks for symptoms of bilateral carpal tunnel syndrome. Pain and inflammation have reduced, as measured by patient's rated pain and by negative Tinel's. Cisco-Baljinder monofilament continues to measure diminished light touch in the median nerve distribution of bilateral hands with very slight improvement since the initial evaluation. At this time the patient is independent with splinting, home paraffin treatments, nerve gliding, tendon gliding, and understanding the importance of rest to reduce pain/inflammation. It is recommended that she follows up with MD regarding nerve conduction and possible cervical involvement in her nerve pain. No further skilled OT indicated at this time. Thank you for referring Elena Ng to [facility]. Please review, sign, date and return this Discharge Report MARITZA. I agree with and certify that the following plan of care is medically necessary. Referring Physician Date Referring Provider: Thelma Burton NP *OT Outpatient Re-Evaluation Evaluation Information Problem Diagnosis Bilateral hand pain Additional Evaluation Detail Elena has attended outpatient OT x6 sessions for bilateral hand pain. Her symptoms have been consistent with carpal tunnel as well as OA of the thumbs. Bilateral wrist cock up splints were fabricated and she has been wearing those at night at for most of the day. She has been completing nerve glides/flossing, tendon gliding, and using paraffin (she ended up getting a paraffin unit at home). It was recommended that she get a neck x-ray to rule out radiculopathy as well as nerve conduction to decide her treatment from here. She has made some progress, but continues to have symptoms of nerve compression and moderate to severe pain daily. Subjective Information Elena states that she Query Text:As Reported By Patient/ continues to be unable to open Family soda bottles and jars without assist. She has had improved ability to zip and button. Pain Assessment Timing of Pain Assessment Timing of Pain Assessment Pre-Treatment Pain Scale Pain Scale Used Numeric (1 - 10) Self Report Pain Assessment Left Hand(s) Reported Pain Level 5 Pain Description Tingling Other Pain
== END 2020-06-03 11:59 | disposition home or self-care (01) ==
LOC: ANHOT 11:00
PROVIDERS: PCP Nurse Practitioner Family; Visit Provider Orthopaedic Surgery
DX: Z48.89 Encounter for other specified surgical aftercare (principal)
CPT/HCPCS: 97014; 97018; 97035; 97110; 97140; 97161; 97165; G0283; L3906

== ENCOUNTER 2020-07-06 10:31 | Outpatient (CLI) | payer OTHER, SELFPAY ==
--- NOTE | ~2020-07-06 | XR_ITS ---
XR ankle RT 2V, XR foot RT 2V 07/06/2020 10:58 Indication: Right foot and ankle pain after injury Procedure: 2 views of the right ankle and 2 views of the right foot Comparison: No prior studies for comparison. Findings: There is old healed distal fibular fracture. There are surgical changes of hallux correctio n. Small degenerative calcaneal enthesophyte. Osteopenia. Mild osteoarthritis of the first MTP joint. Lisfranc joint intact. No foreign bodies. Impression: 1: No acute bone or joint abnormality. Reviewed, dictated and finalized at location B. TIONS ATTENDANT Impression: 1: No acute bone or joint abnormality. Impression: 1: No acute bone or joint abnormality.
== END 2020-07-06 10:32 | disposition home or self-care (01) ==
LOC: CHSIMG 10:34
PROVIDERS: PCP Nurse Practitioner Family; Visit Provider Nurse Practitioner Family
DX: M79.671 Pain in right foot (principal)
CPT/HCPCS: 73600; 73620

== ENCOUNTER 2020-12-16 15:04 | Outpatient (CLI) | payer OTHER, SELFPAY ==
--- NOTE | ~2020-12-16 | XR_ITS ---
XR thoracic spine 2V DATE: 12/16/2020 15:32 INDICATION: Neck and thoracic back pain with intermittent numbness for one year TECHNIQUE: AP, lateral, swimmer views COMPARISON: None FINDINGS: There is diffuse osteopenia. No fracture or dislocation or bone destruction is evident. The thoracic pedicles are intact. No analilia min soft tissue thickening. IMPRESSION: Osteopenia Reviewed, dictated and finalized at location A. IMPRESSION: Osteopenia
--- NOTE | ~2020-12-16 | XR_ITS ---
XR_CERV2-3V_CR DATE: 12/16/2020 15:33 INDICATION: Neck pain, numbness of both arms for a year TECHNIQUE: AP, open-mouth, lateral views COMPARISON: None FINDINGS: There is reversal of cervical curvature. There are 2.5 mm anterolisthesis at C3-4. There is moderately prominent degenerative disc disease at C4-5 and C5-6, with minimal retrolisthesis at each of these levels. C1 and C2 are normally aligned and the odontoid process is intact. No fracture is evident. No locked facet. No prevertebral soft tissue swelling. There is uncovertebral joint spurring in the mid and lower cervical spine and degenerative change at the apophyseal joints. Diffuse osteopenia. IMPRESSION: Reversal of cervical curvature 2.5 mm anterolisthesis at C3-4 Moderately severe degenerative disc disease at C4-5 and C5-6 with minimal retrolisthesis at each of t hese levels Reviewed, dictated and finalized at Location A. Reviewed, dictated and finalized at location A. IMPRESSION: Reversal of cervical curvature 2.5 mm anterolisthesis at C3-4 Moderately severe degenerative disc disease at C4-5 and C5-6 with minimal retro listhesis at each of these levels
== END 2020-12-16 15:05 | disposition home or self-care (01) ==
LOC: CHSIMG 15:07
PROVIDERS: PCP Nurse Practitioner Family; Visit Provider Nurse Practitioner Family
DX: M54.2 Cervicalgia (principal); M85.88 Other specified disorders of bone density and structure, other site; M50.321 Other cervical disc degeneration at C4-C5 level; M50.322 Other cervical disc degeneration at C5-C6 level
CPT/HCPCS: 72040; 72070

== ENCOUNTER 2020-12-21 08:22 | Outpatient (CLI) | payer OTHER, SELFPAY ==
--- NOTE | ~2020-12-21 | XR_ITS ---
XR shoulder RT min 2V 12/21/2020 08:46 Indication: Right shoulder pain Procedure: 4 views right shoulder Comparison: No prior studies for comparison. Findings: Bone alignment is normal. No fracture. Small to moderate sized anterior and lateral subacro mial spurs. Mild acromioclavicular osteoarthritis. Mild glenohumeral osteoarthritis with relatively p reserved joint space but with small marginal osteophytes along the inferior glenoid. Soft tissues are unremarkable. Visualized portions of the right lung are clear. Impression: 1: Mild acromioclavicular and glenohumeral osteoarthritis. 2. Small to moderate-sized subacromial spurs. Reviewed, dictated and finalized at location A. Impression: 1: Mild acromioclavicular and glenohumeral osteoarthritis. 2. Small to moderate-sized subacromial spurs.
== END 2020-12-21 08:23 | disposition home or self-care (01) ==
LOC: CHSIMG 08:26
PROVIDERS: PCP Nurse Practitioner Family; Visit Provider Family Medicine
DX: M75.40 Impingement syndrome of unspecified shoulder (principal); M75.21 Bicipital tendinitis, right shoulder; M47.812 Spondylosis without myelopathy or radiculopathy, cervical region
CPT/HCPCS: 73030

== ENCOUNTER 2020-12-30 07:03 | Outpatient (CLI) | payer OTHER, SELFPAY ==
--- NOTE | ~2020-12-30 | MR_ITS ---
EXAMINATION: MR cervical spine wo con DATE: 12/30/2020 08:47 INDICATION: Cervical root disorders, not elsewhere classified. TECHNIQUE: Magnetic resonance imaging (MRI) of the cervical spine was performed without intravenous c ontrast. Sequences included sagittal T2-weighted FSE, sagittal T2-weighted FS FSE, sagittal STIR FSE, sagittal T1-weighted FSE, axial MERGE, and axial T2-weighted FSE. COMPARISON: Cervical spine radiographs 12/16/2020 FINDINGS: There is 3 degrees levocurvature of cervical spine. There is 3 mm anterolisthesis of C3 on C4 and 2 mm retrolisthesis of C5 on C6. Vertebral body heights are normal. There is moderately decrea sed disc height at C4-C5 and C5-C6. The spinal cord signal intensity is normal. The following disc le vels are specifically discussed: C2-C3: The disc does not extend beyond the endplate margin. There is no uncovertebral joint osteoarth ritis. There is severe bilateral facet joint osteoarthritis. There is mild bilateral neural foraminal stenosis. There is no central canal stenosis. C3-C4: There is a left foraminal protrusion. There is moderate left uncovertebral joint osteoarthriti s. There is severe bilateral facet joint osteoarthritis. There is mild right and moderate left neural foraminal stenosis. There is no central canal stenosis. C4-C5: The disc is bulging. There is severe bilateral uncovertebral joint osteoarthritis. There is se sapphire bilateral facet joint osteoarthritis. There is severe right and mild left neural foraminal steno sis. There is mild central canal stenosis with ventral indentation of the spinal cord. C5-C6: The disc is bulging. There is severe bilateral uncovertebral joint osteoarthritis. There is mi ld right and moderate left facet joint osteoarthritis. There is mild right and moderate left neural f oraminal stenosis. There is mild central canal stenosis with ventral indentation of spinal cord. C6-C7: There is a central protrusion. There is mild left uncovertebral joint osteoarthritis. There is severe bilateral facet joint osteoarthritis. There is mild bilateral neural foraminal stenosis. Ther e is no central canal stenosis. C7-T1: The disc does not extend beyond the endplate margin. There is no uncovertebral joint osteoarth ritis. There is severe right and moderate left facet joint osteoarthritis. There is mild bilateral ne ural foraminal stenosis. There is no central canal stenosis. IMPRESSION: 1. Moderate cervical spondylosis. Reviewed, dictated and finalized at location A.
== END 2020-12-30 07:04 | disposition home or self-care (01) ==
LOC: CHSIMG 07:04
PROVIDERS: PCP Family Medicine; Visit Provider Family Medicine
DX: G54.2 Cervical root disorders, not elsewhere classified (principal); M79.603 Pain in arm, unspecified
CPT/HCPCS: 72141

== ENCOUNTER 2021-02-16 07:30 | Outpatient (RCR) | payer OTHER, SELFPAY ==
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
--- NOTE | 2021-02-23 10:57 | PCPTNOTE ---
Patient did not show up for scheduled appointment this date. Called and spoke with Pt. She reported her arm turned purple and numb over the weekend. She spoke with her MD who advised her to hold on therapy until she see's the neurologist on 03/01/21. Cancelled further appointments per Pt and spoke with Physical Therapist.
--- NOTE | 2021-03-09 15:07 | PCPTNOTE ---
Admitting Provider: Attending Provider: Thelma Burton NP Patient:Elena Ng Date of :1965 Discharge Note Patient has not returned for any further treatments since 02/16/2021, therefore she will be discharged at this time. Patient?s initial visit was on 02/09/2021 08:00 and she had a total of 2 visits. The goals have been not met at this time due to limited therapy visits. Thank you for referring this patient to [facility]. Please review, sign, date and return this discharge summary MARITZA. I have been updated about the patient's current status and I agree with discharge from the above service at this time. Referring Physician Date
== END 2021-03-09 17:44 | disposition home or self-care (01) ==
LOC: ANHPT 07:30
PROVIDERS: PCP Family Medicine; Visit Provider Nurse Practitioner Family
DX: M25.561 Pain in right knee (principal); M21.41 Flat foot [pes planus] (acquired), right foot; M76.821 Posterior tibial tendinitis, right leg
CPT/HCPCS: 97014; 97110; 97163; G0283

== ENCOUNTER 2021-09-10 10:49 | Outpatient (CLI) | payer OTHER, SELFPAY ==
--- NOTE | ~2021-09-10 | MR_ITS ---
EXAMINATION: MR cervical spine wo/w con DATE: 09/10/2021 11:43 INDICATION: Cervical spinal stenosis. TECHNIQUE: Magnetic resonance imaging (MRI) of the cervical spine was performed without and with 15 m L MultiHance intravenous contrast. Sequences included sagittal and axial T2-weighted FSE, sagittal T2 -weighted FS FSE, and sagittal and axial T1-weighted FSE. Postcontrast sequences included sagittal an d axial T1-weighted FS FSE. COMPARISON: Cervical spine MRI 12/30/2020 FINDINGS: There is 4 degrees levocurvature of cervicothoracic spine. There is 2 mm anterolisthesis of C3 on C4 and 2 mm retrolisthesis of C4 on C5. Vertebral body heights are normal. There is moderately decreased disc height at C4-C5 and C5-C6. The spinal cord signal intensity is normal. The following disc levels are specifically discussed: C2-C3: The disc does not extend beyond the endplate margin. There is no uncovertebral joint osteoarth ritis. There is severe bilateral facet joint osteoarthritis. There is mild left neural foraminal sten osis. There is no central canal stenosis. C3-C4: The disc does not extend beyond the endplate margin. There is mild right and moderate left unc overtebral joint osteoarthritis. There is severe bilateral facet joint osteoarthritis. There is mild right and moderate left neural foraminal stenosis. There is no central canal stenosis. C4-C5: The disc is bulging. There is severe bilateral uncovertebral joint osteoarthritis. There is se sapphire bilateral facet joint osteoarthritis. There is severe right and mild left neural foraminal steno sis. There is mild central canal stenosis. C5-C6: The disc is bulging. There is severe bilateral uncovertebral joint osteoarthritis. There is mi ld bilateral facet joint osteoarthritis. There is mild bilateral neural foraminal stenosis. There is mild central canal stenosis. C6-C7: There is a central extrusion. There is mild bilateral uncovertebral joint osteoarthritis. Ther e is severe bilateral facet joint osteoarthritis. There is mild left neural foraminal stenosis. There is mild central canal stenosis. C7-T1: The disc does not extend beyond the endplate margin. There is no uncovertebral joint osteoarth ritis. There is severe bilateral facet joint osteoarthritis. There is mild bilateral neural foraminal stenosis. There is no central canal stenosis. IMPRESSION: 1. Moderate cervical spondylosis, stable from 12/30/2020. Reviewed, dictated and finalized at location A.
[2021-09-10 11:38] LABS: Estimated Glomerular Filt Rate > 60
== END 2021-09-10 10:50 | disposition home or self-care (01) ==
PROVIDERS: PCP Family Medicine; Visit Provider Nurse Practitioner Adult Health
DX: M48.02 Spinal stenosis, cervical region (principal); M47.892 Other spondylosis, cervical region
CPT/HCPCS: 72156; A9577

== ENCOUNTER 2021-10-29 09:17 | Outpatient (CLI) | payer OTHER, SELFPAY ==
--- NOTE | 2021-10-29 11:30 | NEURO_ITS ---
PATIENT NUMBER: [id number] IMPRESSION: # Pain and numbness # Mild evolving left Carpal Tunnel Syndrome. 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 # Needle exam abnormal suggesting possibility of higher involvement. Nerve Conduction Studies Anti Sensory Summary Table Stim Site NR Peak (ms) P-T Amp (?V) Site1 Site2 Delta-P (ms) Dist (cm) David (m/s) Left Median Anti Sensory (2-3nd Digit) Wrist 3.2 72.4 Wrist 2-3nd Digit 3.2 14.0 44 Wrist 3.1 83.8 Wrist 2-3nd Digit 3.2 14.0 44 Right Median Anti Sensory (2-3nd Digit) Wrist 2.4 43.3 Wrist 2-3nd Digit 2.4 14.0 58 Wrist 3.4 47.8 Wrist 2-3nd Digit 2.4 14.0 58 Left Radial Anti Sensory (Base 1st Digit) Wrist 2.1 22.2 Wrist Base 1st Digit 2.1 0.0 Right Radial Anti Sensory (Base 1st Digit) Wrist 2.5 22.6 Wrist Base 1st Digit 2.5 0.0 Left Ulnar Anti Sensory (5th Digit) Wrist 2.8 124.0 Wrist 5th Digit 2.8 14.0 50 Right Ulnar Anti Sensory (5th Digit) Wrist 2.8 60.2 Wrist 5th Digit 2.8 14.0 50 Motor Summary Table Stim Site NR Onset (ms) O-P Amp (mV) Site1 Site2 Delta-0 (ms) Dist (cm) David (m/s) Left Median Motor (Abd Poll Brev) Wrist 4.1 2.3 Elbow Wrist 4.8 28.0 58 Elbow 8.9 2.4 Right Median Motor (Abd Poll Brev) Wrist 3.5 6.4 Elbow Wrist 5.3 27.0 51 Elbow 8.8 4.9 Left Ulnar Motor (Abd Dig Minimi) Wrist 2.1 6.0 A Elbow Wrist 4.9 28.0 57 A Elbow 7.0 4.3 Right Ulnar Motor (Abd Dig Minimi) Wrist 2.7 4.3 A Elbow Wrist 5.1 26.0 51 A Elbow 7.8 3.6 B Elbow Wrist 4.0 18.0 45 B Elbow 6.7 1.3 F Wave Studies NR F-Lat (ms) L-R F-Lat (ms) Left Median (Mrkrs) (Abd Poll Brev) 27.82 0.22 Right Median (Mrkrs) (Abd Poll Brev) 27.60 0.22 Left Ulnar (Mrkrs) (Abd Dig Min) 26.17 1.43 Right Ulnar (Mrkrs) (Abd Dig Min) 27.60 1.43 EMG Side Muscle Nerve Root Ins Act Fibs Amp Dur Recrt Comment Right 1stDorInt Ulnar C8-T1 Nml Nml Nml Nml Nml Right Ext Indicis Radial (Post Int) C7-8 Nml Nml Nml Nml Nml Right Ext Digitorum Radial (Post Int) C7-8 Nml Nml Nml Nml Nml Right BrachioRad Radial C5-6 Nml Nml Nml Nml Nml Right PronatorTeres Median C6-7 Nml Nml Nml Nml Nml Right Abd Poll Brev Median C8-T1 Nml Nml Nml Nml Nml Left 1stDorInt Ulnar C8-T1 Nml Nml Nml Nml Nml Left Ext Indicis Radial (Post Int) C7-8 Nml Nml Nml Nml Nml Left Ext Digitorum Radial (Post Int) C7-8 Nml Nml Nml Nml Nml Left BrachioRad Radial C5-6 Nml Nml Nml Nml Nml Left PronatorTeres Median C6-7 Nml Nml Nml Nml Nml Left Abd Poll Brev Median C8-T1 Nml Nml Nml Nml Nml Right Deltoid Axillary C5-6 Nml Nml Nml >12ms Reduced Left Deltoid Axillary C5-6 Nml Nml Nml Nml Nml Left Triceps Radial C6-7-8 Nml Nml Nml Nml Nml Right Triceps Radial C6-7-8 Nml Nml Nml >12ms Reduced MTDD
== END 2021-10-29 09:18 | disposition home or self-care (01) ==
LOC: ANHNEURO 09:19
PROVIDERS: PCP Family Medicine; Visit Provider Nurse Practitioner Adult Health
DX: M48.02 Spinal stenosis, cervical region (principal); G56.03 Carpal tunnel syndrome, bilateral upper limbs; G56.21 Lesion of ulnar nerve, right upper limb
CPT/HCPCS: 95886; 95911

== ENCOUNTER 2022-06-07 09:32 | Outpatient (CLI) | payer OTHER, SELFPAY ==
--- NOTE | ~2022-06-07 | MM_ITS ---
EXAMINATION: MM scrn leandro implant BI w aline HISTORY: Screening mammogram TECHNIQUE: Craniocaudal and mediolateral oblique 3-D tomosynthesis images with implant displacement a nd synthetic 2-D images were generated. Craniocaudal and mediolateral oblique views of the breasts wi thout implant displacement were obtained using full field digital mammography. CAD analysis was submi tted and interpreted. COMPARISON: 04/08/2020 left ultrasound guided biopsy; benign biopsy result 03/30/2020 bilateral diagnostic mammography and Limited bilateral breast ultrasound 07/01/2019 bilateral diagnostic mammography and Limited bilateral breast ultrasound 06/18/2019 bilateral screening mammogram BREAST PARENCHYMAL COMPOSITION: There are scattered areas of fibroglandular density. FINDINGS: Biopsy marker in the upper outer quadrant left breast; history of prior benign left breast biopsy. Right breast implant. There is no evidence of suspicious mass, calcification, or architectural distortion to suggest malign lonnie in either breast. There has been no suspicious interval change. IMPRESSION: 1. No mammographic evidence of malignancy. 2. Recommend routine screening mammography in one year. BI-RADS Category 2: Benign finding(s). Reviewed, dictated and finalized at location A. TOE STITCHER
[2022-06-07 10:02] LABS: Hemoglobin A1C 5.1 % (<5.7)
== END 2022-06-07 09:33 | disposition home or self-care (01) ==
LOC: CHSIMG 09:36
PROVIDERS: PCP Family Medicine; Visit Provider Family Medicine
DX: Z12.31 Encounter for screening mammogram for malignant neoplasm of breast (principal); I10 Essential (primary) hypertension; M54.12 Radiculopathy, cervical region; R40.0 Somnolence; R73.09 Other abnormal glucose
CPT/HCPCS: 36415; 77063; 77067; 83036